=== PATIENT | male | born 1950 | race Hispanic/Latino ===

== ENCOUNTER 2021-06-24 09:14 | Day surgery (SDC) | payer MEDICARE ==
[2021-06-24] VITALS (8 sets, daily range): BP systolic 92–127; BP diastolic 53–77
[~2021-06-24] VITALS: Ht 175.3 cm; Wt 65.3 kg
[~2021-06-24 09:14] MED LIST: 0.9%NACL 1000ML 1,000 ML IV ONE
[2021-06-24] MEDS ORDERED: LOSA50TA64 PO (10:37)
[2021-06-24] MEDS ORDERED: FURO40TA5 PO (10:37)
[2021-06-24] MEDS ORDERED: OMEP40CA21 PO (10:37)
[2021-06-24] MEDS ORDERED: METO-409 PO (10:37)
[2021-06-24] MEDS ORDERED: CLOP75TA14 PO (10:37)
[2021-06-24] MEDS ORDERED: TRAM50TA4 PO (10:37)
[2021-06-24] MEDS ORDERED: ONDA4TAB4 PO (10:37)
[2021-06-24] MEDS ORDERED: INSU100I21 SQ (10:37)
[2021-06-24] MEDS ORDERED: PROPOFOL 10 MG/ML 20ML VIAL IV ONE (11:21)
== END 2021-06-24 12:25 | disposition home or self-care (01) ==
LOC: DAH 09:14 → ENDO 09:14
PROVIDERS: ATTEND Internal Medicine Gastroenterology
DX: K74.60 Unspecified cirrhosis of liver (principal); Z20.822 Contact with and (suspected) exposure to COVID-19; K31.89 Other diseases of stomach and duodenum; K29.50 Unspecified chronic gastritis without bleeding; R19.7 Diarrhea, unspecified; E78.5 Hyperlipidemia, unspecified; I11.0 Hypertensive heart disease with heart failure; I25.2 Old myocardial infarction; I50.9 Heart failure, unspecified; K21.9 Gastro-esophageal reflux disease without esophagitis; E11.9 Type 2 diabetes mellitus without complications; Z86.73 Personal history of transient ischemic attack (TIA), and cerebral infarction without residual deficits; Z86.19 Personal history of other infectious and parasitic diseases; Z80.0 Family history of malignant neoplasm of digestive organs; Z95.1 Presence of aortocoronary bypass graft; Z79.899 Other long term (current) drug therapy
CPT/HCPCS: 43239; 82948 ×3; 87635; 93005; A4215 ×2; A4221; A4222; A4223; A4606; A4620; A4663; C9803; J2704; J7030